=== PATIENT | female | born 1945 ===

== ENCOUNTER 2017-06-07 16:50 | Inpatient (IN) | payer MEDICARE, OTHER ==
--- NOTE | 2017-06-07 17:33 | ED PDOC ---
Arrival/HPI - General Chief Complaint: Trauma Time Seen by Provider: 06/07/17 16:54 Historian: Patient, Spouse - History of Present Illness Narrative History of Present Illness (Text): 06/07/17 17:27 This 72 yo female who denies pmh, presents to this ED c/o right lower leg weakness, and pain x 2 days. Patient stated after standing from her toillet, her right leg became weak, so she 'stumbled", causing her to sit down again. She stated her right leg continues with weakness. She also noted developing "slurred speech" since yesterday afternoon. Denies other complains. Denies sob , cp, abdominal pain, dizziness, schmidt, diplopia, recent trauma, or leg swelling. Past Medical History - Provider Review Nursing Documentation Reviewed: Yes - Infectious Disease Hx of Infectious Diseases: None - Tetanus Immunization Tetanus Immunization: Up to Date - Reproductive Menopause: Yes - Past Medical History Past Medical History: No Previous - Musculoskeletal/Rheumatological Other/Comment: Sciatica - Psychiatric Hx Depression: No Hx Emotional Abuse: No Hx Physical Abuse: No Hx Substance Use: No - Past Surgical History Past Surgical History: No Previous - Suicidal Assessment Feels Threatened In Home Enviroment: No Family/Social History - Physician Review Nursing Documentation Reviewed: Yes Family/Social History: Other (non-contributory) Smoking Status: Never Smoked Hx Alcohol Use: No Hx Substance Use: No Hx Substance Use Treatment: No Allergies/Home Meds Allergies/Adverse Reactions: Allergies No Known Allergies Allergy (Verified 03/01/14 17:06) Home Medications: Home Meds Medication Instructions Recorded Confirmed No Known Home Med [No Known Home 03/09/14 06/07/17 Med] Review of Systems - Review of Systems Constitutional: Normal. absent: Fatigue, Weight Change, Fevers Eyes: Normal ENT: Normal Respiratory: Normal. absent: SOB, Cough Cardiovascular: Normal. absent: Chest Pain, Palpitations Gastrointestinal: Normal Genitourinary Female: Normal Musculoskeletal: Normal Skin: Normal. absent: Rash Neurological: Focal Weakness, Gait Changes, Speech Changes, Facial Droop. absent: Headache, Dizziness, Disequilibrium, Seizure Endocrine: Normal Hemo/Lymphatic: Normal Psychiatric: Normal Physical Exam Vital Signs Temp Pulse Resp BP Pulse Ox 06/07/17 17:45 146 H 146/88 06/07/17 16:50 98.9 F 132 H 16 146/88 98 Temperature: Afebrile Blood Pressure: Normal Pulse: Regular Respiratory Rate: Normal Appearance: Positive for: Well-Appearing, Non-Toxic, Comfortable Pain Distress: None Mental Status: Positive for: Alert and Oriented X 3 Finger Stick Blood Glucose: 251 - Systems Exam Head: Present: Atraumatic, Normocephalic Pupils: Present: PERRL Extroacular Muscles: Present: EOMI Conjunctiva: Present: Normal Mouth: Present: Moist Mucous Membranes Neck: Present: Normal Range of Motion Respiratory/Chest: Present: Clear to Auscultation, Good Air Exchange. No: Respiratory Distress, Accessory Muscle Use Cardiovascular: Present: Regular Rate and Rhythm, Normal S1, S2. No: Murmurs Abdomen: Present: Normal Bowel Sounds. No: Tenderness, Distention, Peritoneal Signs Back: Present: Normal Inspection Upper Extremity: Present: Normal Inspection. No: Cyanosis, Edema Lower Extremity: Present: Normal Inspection. No: Edema Neurological: Present: Motor Func Grossly Intact, Normal Sensory Function, Normal Cerebellar Funct, Memory Normal, Other ((+) mild slurred speech. Mild right facial paralysis) Skin: Present: Warm, Dry, Normal Color. No: Rashes Psychiatric: Present: Alert, Oriented x 3, Normal Insight, Normal Concentration Medical Decision Making ED Course and Treatment: 06/07/17 19:[address] Hooks Neurologist regrading patient complains of slurred speech x 1 day, and right lower leg weakness x 2 days, EKG finding of A-Fib. He recommended Statin and ASA [address] Hooks stated he will make a decision if Heparin is needed after MRI of Brain, and his examination to patient by tomorrow. To hold Heparin tonight. 06/07/17 20:[address] Ngo regarding new onset of A Fib, and cva x 2 days ago. She agreed with symptoms. 06/07/17 20:38 Dr. Taylor Candy Department Manager was called. 06/07/17 20:[address] Tillman Candy Department Manager regarding A-Fib, and if Heparin will be needed tonight. He stated if Neurologist wants to start Heparin tomorrow after MRI of brain, to do so. To hold Heparin tonight Re-evaluation Time: 20:58 Reassessment Condition: Re-examined, Improving,but remains with symptoms - Lab Interpretations Lab Results: 06/07/17 17:35 06/07/17 17:35 Lab Results 06/07/17 19:20: Blood Type Pending, Antibody Screen Pending, BBK History Checked No verified bt 06/07/17 18:50: Urine Color Yellow, Urine Appearance Sl cloudy, Urine pH 6.0, Ur Specific Bob White 1.020, Urine Protein 100 H, Urine Glucose (UA) 250 H, Urine Ketones Negative, Urine Blood Negative, Urine Nitrate Negative, Urine Bilirubin Negative, Urine Urobilinogen 0.2, Ur Leukocyte Esterase Negative, Urine RBC Pending, Urine WBC Pending 06/07/17 17:35: Sodium 142, Potassium 4.5, Chloride 106, Carbon Dioxide 23, Anion Gap 18, BUN 21, Creatinine 0.8, Est GFR ( Amer) > 60, Est GFR (Non- Af Amer) > 60, Random Glucose 251 H, Calcium 9.8, Total Bilirubin 0.5, AST 23, ALT 20, Alkaline Phosphatase 93, Troponin I < 0.01, NT-Pro-B Natriuret Pep 120, Total Protein 8.8 H, Albumin 4.4, Globulin 4.4, Albumin/Globulin Ratio 1.0 L, Triglycerides 125, Cholesterol 188, LDL Cholesterol Direct 119, HDL Cholesterol 49 06/07/17 17:35: PT 10.3, INR 0.95, APTT 25.6 06/07/17 17:35: WBC 14.1 H, RBC 4.42, Hgb 13.4, Hct 39.8, MCV 90.0, MCH 30.3, MCHC 33.7, RDW 13.0, Plt Count 292, MPV 9.0, Gran % 75.6 H, Lymph % (Auto) 17.7 L, Harmon % (Auto) 5.5, Eos % (Auto) 0.6 L, Baso % (Auto) 0.6, Gran # 10.62 H, Lymph # 2.5, Harmon # 0.8 H, Eos # 0.1, Baso # 0.08 06/07/17 17:05: POC Glucose (mg/dL) 251 H I have reviewed the lab results: Yes Interpretation: Abnormal lab values - RAD Interpretation Narrative RAD Interpretations (Text): 06/07/17 17:58 Accession No. 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 TECHNIQUE: Chest, one view. FINDINGS: LUNGS: Subtle patchy opacity within the medial right upper lobe. Right hilar prominence. PLEURA: No significant pleural effusion identified. No definite pneumothorax . CARDIOVASCULAR: Heart size appears within normal limits. Atherosclerotic calcifications of the aortic knob. OSSEOUS STRUCTURES: Degenerative changes of the spine and shoulders. VISUALIZED UPPER ABDOMEN: Unremarkable. OTHER FINDINGS: None. IMPRESSION: Subtle patchy opacity within the medial right upper lobe. Right hilar prominence. 06/07/17 19:03 [facility] Division of Radiology [address] [address] Tel. no. Patient Name: RANDEE PATRICK Pt. Address: [address] [place] [address] Rec #: [id number] [place] [address]: Jason Avitia PA-C Pt Order Location: ED : 1945 Female Age: 72 Order #: [id number] Reason for exam: slurred speech CT Scan HEAD W/O CONTRAST Exam Date: 06/07/17 This imaging exam was performed at [facility] EXAM: CT Head Without Intravenous Contrast EXAM DATE/TIME: 06/07/2017 5:25 PM CLINICAL HISTORY: 72 years old, female; Pain; Headache; Additional info: Slurred speech TECHNIQUE: Axial computed tomography images of the head/brain without intravenous contrast. All CT scans at this facility use one or more dose reduction techniques, viz.: automated exposure control; ma/kV adjustment per patient size (including targeted exams where dose is matched to indication; i.e. head); or iterative reconstruction technique. COMPARISON: There are no prior studies for comparison. FINDINGS: Brain: There is prominence of sulci gyri and ventricles. There is no midline shift. There is decreased attenuation in periventricular white matter. There is age-indeterminate ischemic change anterior limb of the right internal capsule. There is age-indeterminate ischemic change in the anterior limb of the left external capsule. There is age-indeterminate ischemic change in the insular cortex bilaterally. There are no focal masses. There are no focal hemorrhages. Good-white differentiation is visualized. Ventricles: See above. Bones: Cranial vault is intact. Soft tissues: unremarkable Sinuses: There is no acute sinusitis. Ears and mastoids: Middle ears are unremarkable. Left mastoid is unremarkable. Right mastoid is incompletely pneumatized. Orbits: Orbital contents are unremarkable. IMPRESSION: Atrophy and small vessel disease, no bleed; age indeterminate ischemic changes bilaterally If there is clinical suspicion for acute stroke, MRI may be helpful Dictated By: Jeni Fletcher MD, MD Dictated Date/Time: 06/07/171831 Signed By: Jeni Fletcher MD Date Signed: 1831 Transcribed By: BRENTON Transcribe Date/Time : 06/07/171831 MAHIN/ABIMAEL Radiology Orders: 06/07/17 17:23 CHEST PORTABLE [RAD] Stat 06/07/17 17:25 HEAD W/O CONTRAST [CT] Stat 06/07/17 18:29 DUPLEX LOWER EXTRM VEIN RIGHT [US] Stat - EKG Interpretation Interpreted by ED Physician: Yes (A-Fib with rapid ventricular response @ 127 bpm) Type: 12 lead EKG Comparison: No previous EKG avail. - Medication Orders Current Medication Orders: Discontinued Medications Aspirin (Aspirin) 325 mg PO STAT STA Stop: 06/07/17 19:54 Last Admin: 06/07/17 20:25 Dose: 325 mg Atorvastatin Calcium (Lipitor) 20 mg PO STAT STA Stop: 06/07/17 19:54 Last Admin: 06/07/17 20:25 Dose: 20 mg Diltiazem HCl (Cardizem) 20 mg IVP STAT STA Stop: 06/07/17 17:35 Last Admin: 06/07/17 17:45 Dose: 20 mg Ceftriaxone Sodium (Rocephin 1 Gram Ivpb) 1 gm in 100 mls @ 200 mls/hr IVPB STAT STA PRN Reason: Protocol Stop: 06/07/17 19:33 Last Admin: 06/07/17 20:25 Dose: 200 mls/hr Azithromycin (Zithromax 500mg In Ns) 500 mg in 250 mls @ 167 mls/hr IVPB STAT STA PRN Reason: Protocol Stop: 06/07/17 20:33 NIHSS Scale ([place]) Time Performed: 19:00 - How Severe is the Stoke 24 hours post onset S/S Level of Consciousness: 0=Alert LOC to Questions: 0=Both comments correct LOC to commands: 0=Obeys both correctly Best Gaze: 0=Normal Visual: 0=No visual loss Facial: 1=Minor asymmetry Motor Arm - Left: 0=No drift Motor Arm - Right: 0=No drift Motor Leg - Left: 0=No drift Motor Leg - Right: 0=No drift Limb Ataxia: 0=Absent Sensory: 0=Normal Best Language: 0=No aphasia Dysarthia: 1=Mild to moderate slurring Extinction & Inattention (Neglect): 0=Normal, no object Score: 2 Risk Level: Minor Stroke Risk rTPA Inclusion/Exclusion - Refusal of Treatment Patient Refused Treatment: No - Inclusion Criteria for Altepase Patient is 18 years or Older: Yes The Clinical Diagnosis of Ischemic Stroke That is Causing a Potentially Disabling Neurological Deficit: Yes Time of Onset is Well Established to be Less Than 270 Minute Before Treatment Would Begin: No Risk/Benefit Discussed With Patient/Family Member Present: No - Exclusion Criteria for Altepase Uncontrolled Hypertension at Time of Treatment (Systolic BP above 185 or Diastolic BP above 110 mmHg): No Active Internal Bleeding: No Known Bleeding Diathesis Including but Not Limited to: Platelets Below 100,000/ mm,PTT Above 40 sec After Heparin Use, Current Use of Oral Anitcoagulant With INR Greater Than 1.7 or PT Greater Than 15 secs: No Evidence of an Intracranial Hemorrhage: No Evidence of Major Acute Infarct With Signs Greater Than 1/3 MCA Territory: No Suspicion of Subarachnoid Hemorrhage on Pretreatment Evaluation Even if CT Head Negative For Hemorrhage: No - Warning to TPA With Conditions Following Conditions Weighed Against Anticipated Benefit: No Disposition/Present on Arrival - Present on Arrival Any Indicators Present on Arrival: No History of DVT/PE: No History of Uncontrolled Diabetes: No Urinary Catheter: No History of Decub. Ulcer: No History Surgical Site Infection Following: None - Disposition Have Diagnosis and Disposition been Completed?: Yes Diagnosis: New onset atrial fibrillation, CVA (cerebral vascular accident) Disposition: HOSPITALIZED Disposition Time: 21:04 Patient Plan: Admission Patient Problems: Current Active Problems Problem Status Onset CVA (cerebral vascular accident) Acute New onset atrial fibrillation Acute Condition: STABLE Referrals: Jesus Alberto Enriquez MD [Primary Care Provider] - Follow up with primary Forms: [employer] (Irish)
[2017-06-07 17:51] LABS: BASO # 0.08 K/mm3 (0.0-2.0); BASO % 0.6 % (0.0-3.0); EOS # 0.1 (0.0-0.7); EOS % 0.6 % (1.5-5.0); GRAN # 10.62 (1.4-6.5); GRAN % 75.6 % (50.0-68.0); HEMATOCRIT 39.8 % (36.0-48.0); LYMPH # 2.5 (1.2-3.4); LYMPH % 17.7 % (22.0-35.0); MEAN CORPUSCULAR HEMOGLOBIN 30.3 pg (25.0-35.0); MEAN CORPUSCULAR HGB CONC 33.7 g/dl (31.0-37.0); MONO # 0.8 (0.1-0.6); MONO % 5.5 % (1.0-6.0); WHITE BLOOD COUNT 14.1 10^3/ul (4.5-11.0)
[2017-06-07 17:59] LABS: ALKALINE PHOSPHATASE 93 U/L (38-126); ALT/SGPT 20 U/L (7-56); AST/SGOT 23 U/L (14-36); BILIRUBIN,TOTAL 0.5 mg/dL (0.2-1.3); BLOOD UREA NITROGEN 21 mg/dL (7-21); CALCIUM 9.8 mg/dL (8.4-10.5); CARBON DIOXIDE 23 mmol/L (21-33); CHLORIDE 106 mmol/L (98-107); CHOLESTEROL 188 mg/dL (130-200); GFR AFRICAN-AMERICAN > 60; GLUCOSE,RANDOM 251 mg/dL (70-110); POTASSIUM 4.5 mmol/L (3.6-5.0); SODIUM 142 mmol/L (132-148); TOTAL PROTEIN 8.8 g/dL (5.8-8.3)
--- NOTE | 2017-06-07 17:59 | RAD ---
HISTORY: admission COMPARISON: None available. TECHNIQUE: Chest, one view. FINDINGS: LUNGS: Subtle patchy opacity within the medial right upper lobe. Right hilar prominence. PLEURA: No significant pleural effusion identified. No definite pneumothorax . CARDIOVASCULAR: Heart size appears within normal limits. Atherosclerotic calcifications of the aortic knob. OSSEOUS STRUCTURES: Degenerative changes of the spine and shoulders. VISUALIZED UPPER ABDOMEN: Unremarkable. OTHER FINDINGS: None. IMPRESSION: Subtle patchy opacity within the medial right upper lobe. Right hilar prominence.
[2017-06-07 18:06] LABS: INR 0.95 (0.93-1.08); PARTIAL THROMBOPLASTIN TIME 25.6 Seconds (23.7-30.8)
[2017-06-07 18:24] LABS: TROPONIN I < 0.01 ng/mL
--- NOTE | 2017-06-07 18:33 | CT ---
EXAM: CT Head Without Intravenous Contrast EXAM DATE/TIME: 06/07/2017 5:25 PM CLINICAL HISTORY: 72 years old, female; Pain; Headache; Additional info: Slurred speech TECHNIQUE: Axial computed tomography images of the head/brain without intravenous contrast. All CT scans at this facility use one or more dose reduction techniques, viz.: automated exposure control; ma/kV adjustment per patient size (including targeted exams where dose is matched to indication; i.e. head); or iterative reconstruction technique. COMPARISON: There are no prior studies for comparison. FINDINGS: Brain: There is prominence of sulci gyri and ventricles. There is no midline shift. There is decreased attenuation in periventricular white matter. There is age-indeterminate ischemic change anterior limb of the right internal capsule. There is age-indeterminate ischemic change in the anterior limb of the left external capsule. There is age-indeterminate ischemic change in the insular cortex bilaterally. There are no focal masses. There are no focal hemorrhages. Good-white differentiation is visualized. Ventricles: See above. Bones: Cranial vault is intact. Soft tissues: unremarkable Sinuses: There is no acute sinusitis. Ears and mastoids: Middle ears are unremarkable. Left mastoid is unremarkable. Right mastoid is incompletely pneumatized. Orbits: Orbital contents are unremarkable. IMPRESSION: Atrophy and small vessel disease, no bleed; age indeterminate ischemic changes bilaterally If there is clinical suspicion for acute stroke, MRI may be helpful
[2017-06-07 18:58] LABS: URINE BILIRUBIN NEGATIVE (NEGATIVE); URINE BLOOD NEGATIVE (NEGATIVE); URINE GLUCOSE (UA) 250 mg/dL (NEGATIVE); URINE KETONE NEGATIVE (NEGATIVE); URINE LEUKOCYTE ESTERASE NEGATIVE Leu/uL (NEGATIVE); URINE PROTEIN 100 mg/dL (<30 mg/dL); URINE UROBILINOGEN 0.2 E.U./dL (<1 E.U./dL)
[2017-06-07 18:59] LABS: URINE APPEARANCE SL CLOUDY (CLEAR); URINE COLOR YELLOW (YELLOW)
[2017-06-07] MEDS ORDERED: Azithromycin 500MG/NS 250ml 500 MG/250 ML BAG IVPB STA (19:04)
[2017-06-07] MEDS ORDERED: cefTRIAXone 1 gm 1 GM/100 ML BAG IVPB STA (19:04)
[2017-06-07 22:56] LABS: URINE BACTERIA MANY (NEG); URINE RBC NEGATIVE /hpf (0-2)
--- NOTE | 2017-06-07 23:46 | CP.PCM.HP ---
<PAULINE BIRD - Last Filed: 06/08/17 01:45> History of Present Illness - History of Present Illness History of Present Illness: Mrs. Kohler is a 72 yo F with no PMH presents to the ED after having some RLE numbness (posterior shins) on Wednesday after sitting on the toilet which caused her to stumble and remain in pain for the rest of the day. Pt then states that she discovered that she was slurring her speech on Wednesday at 4pm, but denied any changes in vision, new/unilateral weakness, focal deficits, facial droop or changes in hearing. She states that she contacted her daughter who is a nurse, who told her to go in to ED for workup as it could be a stroke, but pt did not come in until Wednesday. Per , the slurring of speech has improved from onset. Pt did state that she had palpitations on Wednesday and that she had a productive cough (white phlegm last week). Upon further questioning, pt states that her "sciatica" pain, which she diagnosed by looking up symptoms online, has been going for at least 3 months. Pt doesn't like seeing doctors and so has never been worked up before. Pt denies cp, sob, fevers , chills, n/v/d, dysuria or urinary frequency, weakness, changes in hearing/ vision, leg swelling. 10-point ROS reviewed and significant only as stated above. 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, lives at home with FHx: Dad (cerebral aneurysm), Mom (SC), 2 brothers (CVA), 2 sisters (SC) PMD: none Present on Admission - Present on Admission Any Indicators Present on Admission: No History of DVT/PE: No History of Uncontrolled Diabetes: No Review of Systems - Review of Systems All systems: reviewed and no additional remarkable complaints except (as per HPI ) Past Patient History - Infectious Disease Hx of Infectious Diseases: None - Tetanus Immunizations Tetanus Immunization: Up to Date - Past Social History Smoking Status: Never Smoked Alcohol: None Drugs: Denies Home Situation {Lives}: With Family - CARDIAC Hx Cardiac Disorders: No - PULMONARY Hx Respiratory Disorders: No - NEUROLOGICAL Hx Neurological Disorder: No - HEENT Hx HEENT Problems: No - RENAL Hx Chronic Kidney Disease: No - ENDOCRINE/METABOLIC Hx Endocrine Disorders: No - HEMATOLOGICAL/ONCOLOGICAL Hx Blood Disorders: No - INTEGUMENTARY Hx Dermatological Problems: No - MUSCULOSKELETAL/RHEUMATOLOGICAL Hx Musculoskeletal Disorders: Yes (sciatica ) Other/Comment: Sciatica - GASTROINTESTINAL Hx Gastrointestinal Disorders: No - GENITOURINARY/GYNECOLOGICAL Hx Genitourinary Disorders: No - PSYCHIATRIC Hx Psychophysiologic Disorder: No Hx Depression: No Hx Emotional Abuse: No Hx Physical Abuse: No Hx Substance Use: No - SURGICAL HISTORY Hx Surgeries: No Meds Allergies/Adverse Reactions: Allergies Allergy/AdvReac Type Severity Reaction Status Date / Time No Known Allergies Allergy Verified 03/01/14 17:06 Physical Exam - Constitutional Appears: Well, Non-toxic, No Acute Distress - Head Exam Head Exam: ATRAUMATIC, NORMAL INSPECTION, NORMOCEPHALIC - Eye Exam Eye Exam: EOMI, Normal appearance, PERRL Pupil Exam: NORMAL ACCOMODATION - ENT Exam ENT Exam: Mucous Membranes Moist, Normal Exam - Neck Exam Neck exam: Positive for: Normal Inspection - Respiratory Exam Respiratory Exam: Clear to Auscultation Bilateral, NORMAL BREATHING PATTERN. absent: Accessory Muscle Use, Rales, Rhonchi, Wheezes, Respiratory Distress - Cardiovascular Exam Cardiovascular Exam: Tachycardia, Irregular Rhythm. absent: Gallop, JVD - GI/Abdominal Exam GI & Abdominal Exam: Normal Bowel Sounds, Soft. absent: Distended, Tenderness - Extremities Exam Extremities exam: Positive for: full ROM, pedal pulses present. Negative for: calf tenderness, pedal edema, tenderness - Back Exam Back exam: NORMAL INSPECTION. absent: CVA tenderness (L), CVA tenderness (R), rash noted, tenderness - Neurological Exam Neurological exam: Alert, CN II-XII Intact, Oriented x3 Additional comments: NIHSS 2: +1: minor facial paralysis +1: mild dysarthria - Expanded Neurological Exam Expanded Patient oriented to: person, place, time Speech: Slurred Speech (mild) Cranial nerves: EOM's Intact: Normal, Facial Palsey w/Forehead Movement: Normal , Facial Palsey w/o Forehead Movement: Normal, Facial Sensation: Normal, Gag Reflex: Normal, Nystagmus: Normal Cerebellar Function: Finger to Nose: Normal, Heel to Mario: Normal Upper motor neuron: Babinski Sign: Normal, Pronator Drift: Normal, Sensory Extinction: Normal Sensory exam: Lower Extremity Light Touch: Normal, Upper Extremity Light Touch: Normal Neuro motor strength exam: Left Upper Extremity: 4, Right Upper Extremity: 4, Left Lower Extremity: 4, Right Lower Extremity: 4 DTR: Patellar Left: 2+, Patellar Right: 2+ Coma Scale Eye Opening: SPONTANEOUS Coma Scale Motor Response: OBEYS COMMANDS Coma Scale Verbal: Oriented Coma Scale Total: 15 - Psychiatric Exam Psychiatric exam: Normal Affect, Normal Mood - Skin Skin Exam: Normal Color Results - Vital Signs Recent Vital Signs: Last Vital Signs Temp 98.9 F 06/07/17 16:50 Pulse 83 06/07/17 21:00 Resp 16 06/07/17 21:00 BP 152/103 H 06/07/17 21:00 Pulse Ox 95 06/07/17 21:00 - Labs Result Diagrams: 06/07/17 17:35 06/07/17 17:35 Assessment & Plan - Assessment and Plan (Free Text) Assessment: 72yo F PMH sciatica presents to ED s/p slurring of speech that has since resolved and acute exacerbation of chronic sciatic pain. EKG in ED showed A- Fib. Plan: 1. slurring of speech likely 2/2 TIA vs CVA - strong family hx raises suspicion for CVA - NIHSS 2 - CT Head w/o contrast showed no hemorrhage or midline shifts. +age- indeterminate ischemic changes - ASA 325 given, cont 81mg - Lipitor 40mg given in ED - Neurology consulted, rec MRI AM and hold heparin till then - Neuro checks q2 - PT Eval 2. A-Fib/ unknown hx - Cardizem 20mg given in ED - HR currently 80's - Cargiology consulted, recs appreciated - Lopressor 50mg BID - EKG and Echo AM 3. HTN/ unknown hx - started on Lopressor - monitor VS 4. Hyperglycemia/ unknown hx - Humalog low ISS - FS qACHS - A1C ordered 5. Leukocytosis - WBC 14.1 - UA clean - blood cx sent - Azithromycin and Rocephin given in ED - CXR showed subtle patchy opacity within the medial right upper lobe. Right hilar prominence. - Rocephin 1gm daily - Procal ordered HHD NS 100 PTX/SCDs Patient was seen, evaluated and d/w attending, Dr. Jeni Bird PGY1 - Date & Time Date: 06/08/17 Time: 00:00 <Kiley Ngo - Last Filed: 06/08/17 02:16> Results - Vital Signs Recent Vital Signs: Last Vital Signs Temp 98.9 F 06/07/17 16:50 Pulse 78 06/08/17 01:19 Resp 16 06/07/17 21:00 BP 145/89 06/08/17 01:19 Pulse Ox 95 06/07/17 21:00 - Labs Result Diagrams: 06/07/17 17:35 06/07/17 17:35 NIHSS Scale ([place]) Time Performed: 21:30 - How Severe is the Stoke 7-10 days Level of Consciousness: 0=Alert LOC to Questions: 0=Both comments correct LOC to commands: 0=Obeys both correctly Best Gaze: 0=Normal Visual: 0=No visual loss Facial: 1=Minor asymmetry Motor Arm - Left: 0=No drift Motor Arm - Right: 0=No drift Motor Leg - Left: 0=No drift Motor Leg - Right: 1=Drift before 5 sec Limb Ataxia: 0=Absent Sensory: 0=Normal Best Language: 0=No aphasia Dysarthia: 1=Mild to moderate slurring Extinction & Inattention (Neglect): 0=Normal, no object Score: 3 Risk Level: Minor Stroke Risk Attending/Attestation - Attestation I have personally seen and examined this patient.: Yes I have fully participated in the care of the patient.: Yes I have reviewed all pertinent clinical information: Yes Notes (Text): 06/08/17 02:15 documentation as noted above
[2017-06-08] MEDS: Sodium Chloride 0.9% 1,000 ML IV SCH ×2 (01:20→15:09)
[2017-06-08 02:24] VITALS: BMI 20.5
[2017-06-08] MEDS: Pantoprazole 40 mg EC Tab PO SCH ×2 (05:37→17:40)
[2017-06-08 07:04] LABS: HEMATOCRIT 37.2 % (36.0-48.0); MEAN CELL VOLUME 91.6 fl (80.0-105.0); MEAN CORPUSCULAR HEMOGLOBIN 29.8 pg (25.0-35.0); MEAN CORPUSCULAR HGB CONC 32.5 g/dl (31.0-37.0); RED CELL DISTRIBUTION WIDTH 13.4 % (11.5-14.5); WHITE BLOOD COUNT 9.2 10^3/ul (4.5-11.0)
[2017-06-08 07:33] LABS: ALKALINE PHOSPHATASE 67 U/L (38-126); ALT/SGPT 16 U/L (7-56); AST/SGOT 22 U/L (14-36); BILIRUBIN,TOTAL 0.6 mg/dL (0.2-1.3); BLOOD UREA NITROGEN 23 mg/dL (7-21); CALCIUM 9.2 mg/dL (8.4-10.5); CARBON DIOXIDE 23 mmol/L (21-33); CHLORIDE 108 mmol/L (98-107); GFR AFRICAN-AMERICAN > 60; GLUCOSE,RANDOM 201 mg/dL (70-110); POTASSIUM 4.8 mmol/L (3.6-5.0); SODIUM 143 mmol/L (132-148); TOTAL PROTEIN 7.8 g/dL (5.8-8.3)
[2017-06-08] MEDS ORDERED: Enoxaparin 60 mg Syringe SC SCH (07:45)
[2017-06-08] MEDS: Insulin Lispro (humaLOG) LOW Coverage SC SCH ×4 (08:44→22:04)
--- NOTE | 2017-06-08 10:47 | CON ---
NEUROLOGY CONSULTATION REASON FOR CONSULTATION: Slurring of speech. HISTORY OF PRESENTING ILLNESS: The patient is a 72-year-old female who came to the emergency room with 2-day history of slurring of speech and weakness in the right lower extremity. The patient apparently was having slurring of speech over the last 2 days; however, she did not want to come to the emergency room. The ER physician also noted that her leg is weak. She has a history of right leg pain in the past. Yesterday, she was having difficulty standing on the right leg. Denies any weakness in the arms. REVIEW OF SYSTEMS: Denies any headache, dizziness, chest pain, shortness of breath, abdominal pain, constipation, diarrhea, dysuria, cough or sputum production. PAST MEDICAL HISTORY: None. MEDICATIONS AT HOME: None. ALLERGIES: NO KNOWN DRUG ALLERGIES. SOCIAL HISTORY: Denies smoking, use of alcohol or illicit drugs. FAMILY HISTORY: Reviewed and noncontributory to the case. PHYSICAL EXAMINATION: GENERAL: The patient is an elderly pleasant female, lying on the bed, in no acute distress. VITAL SIGNS: Her blood pressure is 117/74, heart rate is 56 per minute, breathing at the rate of 16 per minute and temperature is 98.6 degree Fahrenheit. HEENT EXAM: Head is normocephalic and atraumatic. NECK: Supple. There are no carotid bruits. LUNGS: Clear. CARDIOVASCULAR EXAM: S1 and S2 audible. No murmurs. ABDOMEN: Soft and nontender. Bowel sounds are present. NEUROLOGY EXAMINATION: Mental status. The patient is awake, alert and oriented to time, place, and person. Speech is fluent. Naming and repetition is normal. The memory and cognition are intact. Cranial Nerve Examination: Pupils are 3 mm bilaterally, reactive to light. Visual mathews are full. Extraocular movements are intact. There is decreased nasolabial fold on the left side. Palate is upgoing bilaterally and tongue is midline. Motor Examination: Tone is normal. Power is 5/5 bilaterally in all extremities. Reflexes +1 and symmetrical. Plantars are downgoing bilaterally. Cerebellar Examination: [id number] shows no dysmetria. Gait is deferred at the moment. LABORATORY DATA: Reviewed, show WBC 9.2, hemoglobin 12.1, hematocrit 37.2 and platelets of 279. Sodium is 143, potassium 4.8, chloride 108, carbon dioxide content 23, BUN of 23, creatinine 0.8 and glucose of 201. Her LDL is 119. She had a CT scan of the head done which shows small-vessel ischemic changes. IMPRESSION: 1. New onset of dysarthria associated with left facial weakness. This is likely secondary to a new cerebrovascular accident. 2. New onset of atrial fibrillation. RECOMMENDATIONS: 1. The patient will have MRI of the brain without contrast. 2. The patient will also have carotid Doppler and echocardiogram. 3. The patient will require chronic anticoagulation with her underlying atrial fibrillation. Once anticoagulation is started consider discontinuing aspirin. 4. The patient also to be started on statin. 5. The patient to have physical therapy for gait and balance. 6. The patient also to have speech therapy evaluation. 7. The patient was not a candidate for t-PA administration because she was out of time window. Thank you for the opportunity to participate in the care of this patient. Elysia Hooks MD
--- NOTE | 2017-06-08 10:49 | MRI ---
PROCEDURE: MRI BRAIN WITHOUT CONTRAST HISTORY: s/p TIA vs CVA COMPARISON: None. TECHNIQUE: Multiplanar, multisequence MR images of the brain were obtained without intravenous contrast enhancement. FINDINGS: HEMORRHAGE: None DWI: There is a 10 mm diameter irregular area of restricted diffusion in the left side of the mary consistent with an acute infarct. This is best seen on image 9 series 3. This is also seen on the T2 and FLAIR images. BRAIN PARENCHYMA: No mass effect or edema. Chronic microvascular changes are seen in the periventricular white matter. VENTRICLES: Unremarkable. No hydrocephalus. CRANIUM: Unremarkable. ORBITS: Grossly unremarkable. PARANASAL SINUSES/MASTOIDS: Clear VASCULAR SYSTEM: Skull base flow voids intact. OTHER FINDINGS: None. IMPRESSION: Acute left-sided pontine infarct.
--- NOTE | 2017-06-08 11:24 | US ---
PROCEDURE: Right lower extremity venous US HISTORY: Leg pain and swelling. Evaluate for DVT. PHYSICIAN(S): Wero Radford M.D. TECHNIQUE: Duplex sonography and color-flow Doppler with graded compression were used to evaluate the deep venous system of the right lower extremity. FINDINGS: The visualized deep venous system of the right lower extremity is sonographically normal and compressible. Normal waveforms and augmentation are seen. There is no sonographic evidence for deep venous thrombosis in the visualized segments of the right lower extremity. IMPRESSION: 1. No sonographic evidence for deep venous thrombosis in the visualized segments of the right lower extremity.
[2017-06-08] MEDS: cefTRIAXone 1 gm 1 GM/100 ML BAG IVPB SCH (11:56)
--- NOTE | 2017-06-08 13:54 | CP.PCM.PN ---
<ShardaManueln - Last Filed: 06/08/17 14:05> Subjective - Date & Time of Evaluation Date of Evaluation: 06/08/17 Time of Evaluation: 10:49 - Subjective Subjective: This patient was seen and examined at bedside. The patient reports difficulty in speaking and some right lower extremity weakness today. She denies any chest pain, shortness of breath, nausea, vomiting, lightheadedness, dizziness, changes in vision, cough, or any other complaints. PMHx:sciatica? 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 Denies tobacco or alcohol use. Denies illicit drug use. Lives at home with Family Hx:Dad (cerebral anuerysm), Mom (CT), 2 brothers (CVA), 2 Sisters (CT) PMD: None Objective - Vital Signs/Intake and Output Vital Signs (last 24 hours): Temp Pulse Resp BP Pulse Ox 98.7 F 58 L 20 122/78 98 06/08/17 12:00 06/08/17 12:00 06/08/17 12:00 06/08/17 12:00 06/08/17 06:00 Intake and Output: 06/08/17 06/08/17 06:59 18:59 Intake Total 240 Output Total 2 Balance 238 - Medications Medications: Current Medications Aspirin (Aspirin Chewable) 81 mg PO DAILY [facility] Last Admin: 06/08/17 11:57 Dose: 81 mg Atorvastatin Calcium (Lipitor) 40 mg PO DIN BOO Sodium Chloride (Sodium Chloride 0.9%) 1,000 mls @ 100 mls/hr IV .Q10H [facility] Last Admin: 06/08/17 01:20 Dose: 100 mls/hr Ceftriaxone Sodium (Rocephin 1 Gram Ivpb) 1 gm in 100 mls @ 100 mls/hr IVPB DAILY [facility] PRN Reason: Protocol Last Admin: 06/08/17 11:56 Dose: 100 mls/hr Insulin Human Lispro (Humalog Low) 0 units SC ACHS [facility] PRN Reason: Protocol Last Admin: 06/08/17 11:57 Dose: Not Given Metoprolol Tartrate (Lopressor) 50 mg PO BID [facility] Last Admin: 06/08/17 11:53 Dose: Not Given Pantoprazole Sodium (Protonix Ec Tab) 40 mg PO 0600,1600 BOO Last Admin: 06/08/17 05:37 Dose: 40 mg - Labs Labs: 06/08/17 05:15 06/08/17 05:15 PT 10.3 Seconds (9.9-11.8) 06/07/17 17:35 INR 0.95 (0.93-1.08) 06/07/17 17:35 APTT 25.6 Seconds (23.7-30.8) 06/07/17 17:35 - Head Exam Head Exam: ATRAUMATIC, NORMAL INSPECTION, NORMOCEPHALIC Additional comments: Asymmetry noted in the face on the right side. Asymmetric smile. - Eye Exam Eye Exam: EOMI, Normal appearance, PERRL - Neck Exam Neck Exam: Normal Inspection - Respiratory Exam Respiratory Exam: Clear to Ausculation Bilateral, NORMAL BREATHING PATTERN. absent: Rales, Rhonchi - Cardiovascular Exam Cardiovascular Exam: REGULAR RHYTHM, +S1, +S2. absent: Rubs - GI/Abdominal Exam GI & Abdominal Exam: Soft, Normal Bowel Sounds. absent: Rigid, Tenderness, Hyperactive Bowel Sounds - Extremities Exam Additional comments: Decreased strength noticed on the right lower extremity. - Back Exam Back Exam: NORMAL INSPECTION. absent: paraspinal tenderness - Neurological Exam Neurological Exam: Alert, Awake, CN II-XII Intact - Psychiatric Exam Psychiatric exam: Normal Affect, Normal Mood - Skin Skin Exam: Dry, Intact. absent: Urticaria, Vesicles Assessment and Plan - Assessment and Plan (Free Text) Assessment: 1.CVA -MRI showed a acute left pontine infarct -Continue ASA 81 mg. -Continue neuro checks q2. -PT Eval pending 2. Afib -Cardizem 20 given in E.D.Currently HR 56. Monitor heart rate. -Cardiology consulted and appreciated. -Continue lopressor. -Echo pending. 3.HTN -continue Lopressor -Monitor vital signs 4.Diabetes Type 2 -A1C-8.5 % -Continue Humalog. -Follow up with PMD as outpatient for further management. 5.Leukocytosis -Resolved. WBC 9.2 (down from 14.1) -Blood cx pending -Continue Rocephin. <Kym El - Last Filed: 06/09/17 07:57> Objective - Vital Signs/Intake and Output Vital Signs (last 24 hours): Temp Pulse Resp BP Pulse Ox 98.7 F 49 L 20 166/88 H 98 06/08/17 12:00 06/09/17 05:51 06/08/17 12:00 06/08/17 17:40 06/08/17 06:00 Intake and Output: 06/09/17 06/09/17 06:59 18:59 Output Total 400 Balance -400 - Medications Medications: Current Medications Apixaban (Eliquis) 10 mg PO BID [facility] PRN Reason: Protocol Aspirin (Aspirin Chewable) 81 mg PO DAILY [facility] Last Admin: 06/08/17 11:57 Dose: 81 mg Atorvastatin Calcium (Lipitor) 40 mg PO DIN [facility] Last Admin: 06/08/17 17:40 Dose: 40 mg Enoxaparin Sodium (Lovenox) 50 mg SC Q12H [facility] PRN Reason: Protocol Last Admin: 06/08/17 20:49 Dose: 50 mg Glipizide (Glucotrol) 5 mg PO DAILY [facility] Last Admin: 06/08/17 15:09 Dose: 5 mg Sodium Chloride (Sodium Chloride 0.9%) 1,000 mls @ 100 mls/hr IV .Q10H [facility] Last Admin: 06/09/17 01:44 Dose: 100 mls/hr Ceftriaxone Sodium (Rocephin 1 Gram Ivpb) 1 gm in 100 mls @ 100 mls/hr IVPB DAILY [facility] PRN Reason: Protocol Last Admin: 06/08/17 11:56 Dose: 100 mls/hr Insulin Human Lispro (Humalog Low) 0 units SC ACHS [facility] PRN Reason: Protocol Last Admin: 06/08/17 22:04 Dose: Not Given Lisinopril (Zestril) 10 mg PO DAILY [facility] Metoprolol Tartrate (Lopressor) 50 mg PO BID [facility] Last Admin: 06/08/17 17:40 Dose: 50 mg Pantoprazole Sodium (Protonix Ec Tab) 40 mg PO 0600,1600 [facility] Last Admin: 06/09/17 05:41 Dose: 40 mg - Labs Labs: 06/08/17 05:15 06/08/17 05:15 PT 10.3 Seconds (9.9-11.8) 06/07/17 17:35 INR 0.95 (0.93-1.08) 06/07/17 17:35 APTT 25.6 Seconds (23.7-30.8) 06/07/17 17:35 Attending/Attestation - Attestation I have personally seen and examined this patient.: Yes I have fully participated in the care of the patient.: Yes I have reviewed all pertinent clinical information, including history, physical exam and plan: Yes Notes (Text): 06/09/17 07:53 Attending note; Patient seen and examined with resident. Patient's daughter by the bedside. Patient is a 72-year-old female admitted with right lower extremity numbness and slurred speech. CT head showed atrophy of small vessels and ischemic changes. MRI showed acute left pontine infarct. Neurology evaluation appreciated. Continue aspirin, Lipitor. New onset A. fib; started on subcutaneous Lovenox. Case discussed with cardiology in detail. Started eliquis in a.m. Echocardiogram ordered. Diabetes; newly diagnosed. Started on glipizide. PT evaluation requested. Case discussed with supportive employment case manager for discharge planning. Upon discharge the patient can follow up with PMD DR. Enriquez.
--- NOTE | 2017-06-08 17:13 | US ---
PROCEDURE: Bilateral carotid artery duplex ultrasound HISTORY: Carotid stenosis CVA PHYSICIAN(S): Wero Radford MD. TECHNIQUE: Duplex sonography and color-flow Doppler were used to evaluate the carotid bifurcations and limited segments of the vertebral arteries bilaterally. FINDINGS: There is moderate focal heterogeneous plaque noted at the carotid bifurcations bilaterally. Interrogation of the ICA origins is somewhat limited by shadowing plaque. The peak systolic velocity in the proximal right internal carotid artery is 130 cm/sec. This corresponds to a 40-59 percent proximal right ICA stenosis. Mildly elevated systolic velocities are noted in the proximal right external carotid artery. There is antegrade flow in the right vertebral artery. The peak systolic velocity in the proximal left internal carotid artery is 187 cm/sec. This corresponds to a 60-79 percent proximal left ICA stenosis. Normal systolic velocities are noted in the proximal left external carotid artery. There is antegrade flow in the left vertebral artery. IMPRESSION: 1. 60-79 percent proximal left ICA stenosis. 2. 40-59 percent proximal right ICA stenosis. 3. Antegrade flow in both vertebral arteries. 4. Interrogation of the ICA origins is somewhat limited by shadowing plaque.
--- NOTE | 2017-06-08 18:22 | CON ---
REASON FOR CONSULTATION: Atrial fibrillation and acute stroke in the past. The patient's right leg weakness has improved, but still has some degree of slurred speech. The patient denies any syncope. The patient denied any chest pain or shortness of breath and is unaware of any history of heart attack in the past. SOCIAL HISTORY: Nonsmoker. She is , lives with her . MEDICATIONS: Aspirin 81 mg once a day, glipizide 5 mg once a day, Lipitor 40 mg once a day, Lopressor 50 mg once a day, Lovenox 50 mg subcutaneous twice a day, Protonix 40 mg p.o. twice a day, Rocephin 1 g intravenously daily, normal saline at 10 mL an hour. REVIEW OF SYSTEMS: No fever or chills. No vomiting or diarrhea. No reported ventricular arrhythmia. PHYSICAL EXAMINATION GENERAL: The patient is an elderly female, who does not appear to be in acute distress. VITAL SIGNS: Blood pressure 122/78, heart rate 58, temperature 98.7, respirations 20. HEENT: No pallor or icterus. NECK: No JVD. CHEST: Clear. HEART: S1 and S2 regular. ABDOMEN: Soft. EXTREMITIES: No edema or calf tenderness. LABORATORY DATA: CBC: WBC 9.2, hemoglobin and hematocrit 12.1 and 37.2 respectively while platelet count 279,000. SMA-7: Sodium 143, potassium 4.8, chloride 108, CO2 23, glucose 201, BUN 23, creatinine 0.8. One set of troponin is negative. Admitting EKG revealed atrial fibrillation at the rate of [address] segment changes. Today's EKG revealed sinus bradycardia at rate of 56 with lateral ischemic T wave changes. Brain MRI revealed acute left-sided pontine infarct. Lower extremity ultrasound, no sonographic evidence of DVT. ASSESSMENT: 1. Paroxysmal atrial fibrillation. 2. Acute cerebrovascular accident in the form of left pontine infarct. 3. Hypertension. 4. Diabetes mellitus. RECOMMENDATIONS: Continue therapeutic subcutaneous Lovenox 50 mg twice a day, Lipitor at 40 mg once a day, hold Lopressor for heart rate below 60. Continue aspirin 81 mg once a day. Eliquis will be started tomorrow as per the neurologist. I would review echocardiography study performed today. I did request TSH level. Santi Taylor MD [facility] # [id number]
--- NOTE | 2017-06-08 19:40 | CARD ---
APPROVED REPORT EXAM: Two-dimensional and M-mode echocardiogram with Doppler and color Doppler. INDICATION NEW A-FIB 2D DIMENSIONS Left Atrium (2D)4.1 (1.6-4.0cm)IVSd1.2 (0.7-1.1cm) LVDd4.4 (3.9-5.9cm)PWd1.4 (0.7-1.1cm) LVDs3.0 (2.5-4.0cm)FS (%) 32.0 % LVEF (%)60.3 (>50%) M-Mode DIMENSIONS Aortic Root3.30 (2.2-3.7cm)Aortic Cusp Exc.1.30 (1.5-2.0cm) Aortic Valve AoV Peak Xjtyfwbr646.0cm/Rigoberto Peak GR.9mmHg Mitral Valve MV E Jolruypx38.9cm/sMV A Mavuhmxj45.8cm/sE/A ratio0.8 TDI Lateral E' Peak V6.43cm/sMedial E' Peak V5.95cm/sE/Lateral E'11.8 E/Medial E'12.8 Pulmonary Valve PV Peak Uhdgryjx67.5cm/sPV Peak Grad.3mmHg Tricuspid Valve TR Peak Uhtutxce389ot/sRAP [id number] Peak Gr.25mmHg [id number] LEFT VENTRICLE The left ventricle is normal size. There is borderline concentric left ventricular hypertrophy. The left ventricular function is normal. The left ventricular ejection fraction is within the normal range. There is normal LV segmental wall motion. Transmitral Doppler flow pattern is Grade I-abnormal relaxation pattern. RIGHT VENTRICLE The right ventricle is normal size. There is normal right ventricular wall thickness. The right ventricular systolic function is normal. ATRIA The left atrium size is normal. The right atrium size is normal. AORTIC VALVE The aortic valve is not well visualized. No aortic regurgitation is present. There is no aortic valvular stenosis. MITRAL VALVE The mitral valve is mildly thickened. Mitral regurgitation is mild. TRICUSPID VALVE There is mild tricuspid regurgitation. There is mild pulmonary hypertension. GREAT VESSELS The aortic root is normal in size. PERICARDIAL EFFUSION There is a small loculated anterior pericardial effusion. <Conclusion> The left ventricle is normal size. There is borderline concentric left ventricular hypertrophy. The left ventricular function is normal. The left ventricular ejection fraction is within the normal range. There is normal LV segmental wall motion. Transmitral Doppler flow pattern is Grade I-abnormal relaxation pattern. Mitral regurgitation is mild. There is mild tricuspid regurgitation. There is mild pulmonary hypertension.
[2017-06-08] MEDS: Enoxaparin 60 mg Syringe SC SCH (20:49)
--- NOTE | 2017-06-08 23:28 | CARD ---
APPROVED REPORT EKG Measurement Heart [id number] <Conclusion> Sinus bradycardia with 1st degree AV block T wave abnormality, consider anterolateral ischemia Prolonged QT Abnormal ECG
--- NOTE | 2017-06-09 00:27 | CARD ---
APPROVED REPORT EKG Measurement Heart [id number] <Conclusion> Atrial fibrillation with rapid ventricular response Nonspecific ST abnormality, probably digitalis effect Abnormal ECG
[2017-06-09] MEDS: Sodium Chloride 0.9% 1,000 ML IV SCH (01:44)
[2017-06-09] MEDS: Pantoprazole 40 mg EC Tab PO SCH (05:41)
[2017-06-09 07:59] LABS: HEMATOCRIT 37.5 % (36.0-48.0); MEAN CELL VOLUME 91.2 fl (80.0-105.0); MEAN CORPUSCULAR HEMOGLOBIN 30.2 pg (25.0-35.0); MEAN CORPUSCULAR HGB CONC 33.1 g/dl (31.0-37.0); MEAN PLATELET VOLUME 9.1 fl (7.0-11.0); RED CELL DISTRIBUTION WIDTH 13.1 % (11.5-14.5); WHITE BLOOD COUNT 10.6 10^3/ul (4.5-11.0)
[2017-06-09 08:07] VITALS: O2SAT 97
[2017-06-09 08:12] LABS: ALKALINE PHOSPHATASE 66 U/L (38-126); ALT/SGPT 24 U/L (7-56); AST/SGOT 25 U/L (14-36); BILIRUBIN,TOTAL 0.8 mg/dL (0.2-1.3); BLOOD UREA NITROGEN 18 mg/dL (7-21); CALCIUM 9.4 mg/dL (8.4-10.5); CARBON DIOXIDE 25 mmol/L (21-33); CHLORIDE 110 mmol/L (95-110); GFR AFRICAN-AMERICAN > 60; GLUCOSE,RANDOM 143 mg/dL (70-110); POTASSIUM 4.1 mmol/L (3.6-5.0); SODIUM 144 mmol/L (132-148)
--- NOTE | 2017-06-09 08:45 | PQF PNEUMO ---
This form is a permanent part of the medical record Clarification of your documentation is requested to better reflect the severity of illness and intensity of treatment of your patient. Indicators present Admitted w/ leukocytosis, CXR- subtle patchy opacities medial RUL. Treated w/ IV Roceph. Was Pneumonia present & treated on admission [] Documented diagnosis of pneumonia [x] X-ray findings: [] Positive Sputum cultures [] Cough w/ fever [] Abnormal lungs sounds [] Poor gag reflex [] Speech consults/swallow evaluation [] Vent dependence [] Other: [] Location in the medical record that reflects the above clinical findings: [x] Admission CXR Treatment Provided: []IV Rocephin PHYSICIAN'S RESPONSE Based on your medical judgment of the clinical indicators outlined above, are you treating this patient for a known or suspected: [] Aspiration pneumonia [] Community acquired pneumonia [] Ventilator associated pneumonia [] Viral pneumonia [] Bacterial pneumonia Please specify organism: [] [] Other, please indicate [] If Unable to Determine, please check the box, sign and date. Present On Admission (POA) Indicator: [x] Present at the time of admission [] Not present at the time of admission [] Clinically Undetermined In responding to this query, please exercise your independent professional judgment. The fact that a question is asked does not imply that any particular answer is desired or expected. Thank you for your clarification on this documentation. If you have any questions please call:[ ][phone] * Thank you, [ ]Kristen Burch RN CDS pension consultant PASTOR
[2017-06-09] MEDS: Insulin Lispro (humaLOG) LOW Coverage SC SCH ×2 (10:03→11:53)
[2017-06-09] MEDS: Enoxaparin 60 mg Syringe SC SCH (10:04)
[2017-06-09] MEDS: cefTRIAXone 1 gm 1 GM/100 ML BAG IVPB SCH (10:11)
--- NOTE | 2017-06-09 10:35 | CT ---
PROCEDURE: CT Chest without contrast HISTORY: r/o pneumonia COMPARISON: None. TECHNIQUE: Contiguous axial images were obtained through the chest without intravenous contrast enhancement. Sagittal and coronal reconstructions were performed. Radiation dose (DLP): mGy-cm. This CT exam was performed using one or more of the following dose reduction techniques: Automated exposure control, adjustment of the mA and/or kV according to patient size, and/or use of iterative reconstruction technique. FINDINGS: LUNGS: There is no focal consolidation to suggest pneumonia. There is some scarring in the right lower lobe in the region of the azygoesophageal recess. MEDIASTINUM: Unremarkable thoracic aorta. No aneurysm. Extensive calcifications are seen in the coronary arteries. The heart is normal in size Main pulmonary artery unremarkable. No vascular congestion. No lymphadenopathy. PLEURA: No pleural fluid. No pneumothorax. BONES: No fracture. No destructive lesion. UPPER ABDOMEN: Grossly unremarkable. OTHER FINDINGS: None. IMPRESSION: No acute findings. No evidence of pneumonia.
[2017-06-09 13:04] VITALS: BP 149/80; RESP 14; TEMP 98
--- NOTE | 2017-06-09 14:22 | CP.PCM.DIS ---
<ShardaManueln - Last Filed: 06/09/17 14:17> Provider - Provider Date of Admission: 06/07/17 21:09 Attending physician: Kym El MD Primary care physician: Jesus Alberto Enriquez MD Time Spent in preparation of Discharge (in minutes): 50 Hospital Course - Lab Results Lab Results: Most Recent Lab Values WBC 10.6 10^3/ul (4.5-11.0) 06/09/17 07:30 RBC 4.11 10^6/uL (3.5-6.1) 06/09/17 07:30 Hgb 12.4 g/dL (12.0-16.0) 06/09/17 07:30 Hct 37.5 % (36.0-48.0) 06/09/17 07:30 MCV 91.2 fl (80.0-105.0) 06/09/17 07:30 MCH 30.2 pg (25.0-35.0) 06/09/17 07:30 MCHC 33.1 g/dl (31.0-37.0) 06/09/17 07:30 RDW 13.1 % (11.5-14.5) 06/09/17 07:30 Plt Count 270 10^3/uL (120.0-450.0) 06/09/17 07:30 MPV 9.1 fl (7.0-11.0) 06/09/17 07:30 Gran % 75.6 % (50.0-68.0) H 06/07/17 17:35 Lymph % (Auto) 17.7 % (22.0-35.0) L 06/07/17 17:35 Pickens % (Auto) 5.5 % (1.0-6.0) 06/07/17 17:35 Eos % (Auto) 0.6 % (1.5-5.0) L 06/07/17 17:35 Baso % (Auto) 0.6 % (0.0-3.0) 06/07/17 17:35 Gran # 10.62 (1.4-6.5) H 06/07/17 17:35 Lymph # 2.5 (1.2-3.4) 06/07/17 17:35 Pickens # 0.8 (0.1-0.6) H 06/07/17 17:35 Eos # 0.1 (0.0-0.7) 06/07/17 17:35 Baso # 0.08 K/mm3 (0.0-2.0) 06/07/17 17:35 PT 10.3 Seconds (9.9-11.8) 06/07/17 17:35 INR 0.95 (0.93-1.08) 06/07/17 17:35 APTT 25.6 Seconds (23.7-30.8) 06/07/17 17:35 Sodium 144 mmol/L (132-148) 06/09/17 07:30 Potassium 4.1 mmol/L (3.6-5.0) 06/09/17 07:30 Chloride 110 mmol/L (95-110) 06/09/17 07:30 Carbon Dioxide 25 mmol/L (21-33) 06/09/17 07:30 Anion Gap 13 (10-20) 06/09/17 07:30 BUN 18 mg/dL (7-21) 06/09/17 07:30 Creatinine 0.8 mg/dL (0.5-1.4) 06/09/17 07:30 Est GFR ( Amer) > 60 06/09/17 07:30 Est GFR (Non-Af Amer) > 60 06/09/17 07:30 POC Glucose (mg/dL) 157 mg/dL (65-110) H 06/09/17 11:39 Random Glucose 143 mg/dL (70-110) H 06/09/17 07:30 Hemoglobin A1c 8.4 % (4.2-6.5) H 06/07/17 17:35 Calcium 9.4 mg/dL (8.4-10.5) 06/09/17 07:30 Total Bilirubin 0.8 mg/dL (0.2-1.3) 06/09/17 07:30 AST 25 U/L (14-36) 06/09/17 07:30 ALT 24 U/L (7-56) 06/09/17 07:30 Alkaline Phosphatase 66 U/L (38-126) 06/09/17 07:30 Troponin I < 0.01 ng/mL 06/07/17 17:35 NT-Pro-B Natriuret Pep 120 pg/mL (0-450) 06/07/17 17:35 Total Protein 8.0 g/dL (5.8-8.3) 06/09/17 07:30 Albumin 3.9 g/dL (3.0-4.8) 06/09/17 07:30 Globulin 4.1 gm/dL 06/09/17 07:30 Albumin/Globulin Ratio 1.0 (1.1-1.8) L 06/09/17 07:30 Triglycerides 125 mg/dL (35-160) 06/07/17 17:35 Cholesterol 188 mg/dL (130-200) 06/07/17 17:35 LDL Cholesterol Direct 119 mg/dL (0-129) 06/07/17 17:35 HDL Cholesterol 49 mg/dL (29-60) 06/07/17 17:35 Procalcitonin < 0.50 NG/ML (0.19-0.49) H 06/08/17 05:15 TSH 3rd Generation 2.61 mIU/mL (0.46-4.68) 06/09/17 07:30 Urine Color Yellow (YELLOW) 06/07/17 18:50 Urine Appearance Sl cloudy (CLEAR) 06/07/17 18:50 Urine pH 6.0 (4.7-8.0) 06/07/17 18:50 Ur Specific Mcfarland 1.020 (1.005-1.035) 06/07/17 18:50 Urine Protein 100 mg/dL (<30 mg/dL) H 06/07/17 18:50 Urine Glucose (UA) 250 mg/dL (NEGATIVE) H 06/07/17 18:50 Urine Ketones Negative mg/dL (NEGATIVE) 06/07/17 18:50 Urine Blood Negative (NEGATIVE) 06/07/17 18:50 Urine Nitrate Negative (NEGATIVE) 06/07/17 18:50 Urine Bilirubin Negative (NEGATIVE) 06/07/17 18:50 Urine Urobilinogen 0.2 E.U./dL (<1 E.U./dL) 06/07/17 18:50 Ur Leukocyte Esterase Negative Preet/uL (NEGATIVE) 06/07/17 18:50 Urine RBC Negative /hpf (0-2) 06/07/17 18:50 Urine WBC 5 - 10 /hpf (0-6) 06/07/17 18:50 Ur Epithelial Cells 4 - 5 /hpf (0-5) 06/07/17 18:50 Urine Bacteria Many (NEG) 06/07/17 18:50 Blood Type B POSITIVE 06/07/17 19:20 Blood Type Confirm B POSITIVE 06/07/17 20:15 Antibody Screen Negative 06/07/17 19:20 BBK History Checked No verified bt 06/07/17 19:20 - Hospital Course Hospital Course: This is a 72 yr. old female with a past medical history of sciatica who presented to ED s/p slurring of speech that has since resolved and acute exacerbation of chronic sciatic pain. EKD in ED showed A-fib. CT head w/o contrast in ED showed no hemorrhage or midline shifts. It did show age indeterminate ischemic changes and gave her a NIHSS 3 scale. On 06/08 She was seen by the Neurologist Dr. Hooks who advised for an MRI, echo, anticoagulation, and start at statin. MRI showed acute left pontine infarct (10 mm diameter irregular area of restricted diffusion on L side of mary c/w acute infarct). She was also seen by Cardiology that advised to continue Lovenox, lipitor, aspirin and to hold Lopressor when heart rate drops belwo 60 bpm. On 06/09 she was started Eliquis per Neurology consult. On 06/10 patient was discharged and advised to follow up with surgeon in regards to carotid stenosis present. Discharge Exam - Head Exam Head Exam: ATRAUMATIC, NORMAL INSPECTION, NORMOCEPHALIC - Eye Exam Eye Exam: EOMI, Normal appearance, PERRL Pupil Exam: NORMAL ACCOMODATION, PERRL - ENT Exam ENT Exam: Mucous Membranes Moist - Respiratory Exam Respiratory Exam: Clear to PA & Lateral, NORMAL BREATHING PATTERN. absent: Rales, Rhonchi - Cardiovascular Exam Cardiovascular Exam: REGULAR RHYTHM, RRR, +S1, +S2. absent: Gallop, Rubs - GI/Abdominal Exam GI & Abdominal Exam: Normal Bowel Sounds, Unremarkable. absent: Firm, Guarding - Back Exam Back exam: NORMAL INSPECTION. absent: paraspinal tenderness - Neurological Exam Neurological exam: Alert, CN II-XII Intact, Oriented x3 - Psychiatric Exam Psychiatric exam: Normal Affect, Normal Mood - Skin Skin Exam: Dry, Intact Discharge Plan - Discharge Medications Prescriptions: Aspirin [Aspirin Chewable] 81 mg PO DAILY #15 tab Apixaban [Eliquis] 5 mg PO BID #60 tablet GlipiZIDE [Glucotrol] 5 mg PO DAILY #15 tab Atorvastatin [Lipitor] 40 mg PO DIN #15 tab Metoprolol Tartrate [Lopressor] 25 mg PO BID #30 tab Lisinopril [Zestril] 10 mg PO DAILY #15 tab - Follow Up Plan Condition: STABLE Disposition: REHAB FACILITY/REHAB UNIT Instructions: Atrial Fibrillation (DC), Diabetes Mellitus Type 2 in Adults (DC) , Meal Planning with Diabetes Exchanges (DC), Stroke (DC) Additional Instructions: Patient discharge instructions - Follow up with neurologist 1 week after discharge - follow up with clerical clerk 1 week after discharge - follow up with vascular surgeon within 1 week after discharge Patient should return to E.D. for any new or worsening symptoms. Referrals: Jesus Alberto Enriquez MD [Primary Care Provider] - <Kym El - Last Filed: 06/09/17 17:56> Provider - Provider Date of Admission: 06/07/17 21:09 Attending physician: Kym El MD Primary care physician: Jesus Alberto Enriquez MD Hospital Course - Lab Results Lab Results: Most Recent Lab Values WBC 10.6 10^3/ul (4.5-11.0) 06/09/17 07:30 RBC 4.11 10^6/uL (3.5-6.1) 06/09/17 07:30 Hgb 12.4 g/dL (12.0-16.0) 06/09/17 07:30 Hct 37.5 % (36.0-48.0) 06/09/17 07:30 MCV 91.2 fl (80.0-105.0) 06/09/17 07:30 MCH 30.2 pg (25.0-35.0) 06/09/17 07:30 MCHC 33.1 g/dl (31.0-37.0) 06/09/17 07:30 RDW 13.1 % (11.5-14.5) 06/09/17 07:30 Plt Count 270 10^3/uL (120.0-450.0) 06/09/17 07:30 MPV 9.1 fl (7.0-11.0) 06/09/17 07:30 Gran % 75.6 % (50.0-68.0) H 06/07/17 17:35 Lymph % (Auto) 17.7 % (22.0-35.0) L 06/07/17 17:35 Pickens % (Auto) 5.5 % (1.0-6.0) 06/07/17 17:35 Eos % (Auto) 0.6 % (1.5-5.0) L 06/07/17 17:35 Baso % (Auto) 0.6 % (0.0-3.0) 06/07/17 17:35 Gran # 10.62 (1.4-6.5) H 06/07/17 17:35 Lymph # 2.5 (1.2-3.4) 06/07/17 17:35 Pickens # 0.8 (0.1-0.6) H 06/07/17 17:35 Eos # 0.1 (0.0-0.7) 06/07/17 17:35 Baso # 0.08 K/mm3 (0.0-2.0) 06/07/17 17:35 PT 10.3 Seconds (9.9-11.8) 06/07/17 17:35 INR 0.95 (0.93-1.08) 06/07/17 17:35 APTT 25.6 Seconds (23.7-30.8) 06/07/17 17:35 Sodium 144 mmol/L (132-148) 06/09/17 07:30 Potassium 4.1 mmol/L (3.6-5.0) 06/09/17 07:30 Chloride 110 mmol/L (95-110) 06/09/17 07:30 Carbon Dioxide 25 mmol/L (21-33) 06/09/17 07:30 Anion Gap 13 (10-20) 06/09/17 07:30 BUN 18 mg/dL (7-21) 06/09/17 07:30 Creatinine 0.8 mg/dL (0.5-1.4) 06/09/17 07:30 Est GFR ( Amer) > 60 06/09/17 07:30 Est GFR (Non-Af Amer) > 60 06/09/17 07:30 POC Glucose (mg/dL) 143 mg/dL (65-110) H 06/09/17 15:58 Random Glucose 143 mg/dL (70-110) H 06/09/17 07:30 Hemoglobin A1c 8.4 % (4.2-6.5) H 06/07/17 17:35 Calcium 9.4 mg/dL (8.4-10.5) 06/09/17 07:30 Total Bilirubin 0.8 mg/dL (0.2-1.3) 06/09/17 07:30 AST 25 U/L (14-36) 06/09/17 07:30 ALT 24 U/L (7-56) 06/09/17 07:30 Alkaline Phosphatase 66 U/L (38-126) 06/09/17 07:30 Troponin I < 0.01 ng/mL 06/07/17 17:35 NT-Pro-B Natriuret Pep 120 pg/mL (0-450) 06/07/17 17:35 Total Protein 8.0 g/dL (5.8-8.3) 06/09/17 07:30 Albumin 3.9 g/dL (3.0-4.8) 06/09/17 07:30 Globulin 4.1 gm/dL 06/09/17 07:30 Albumin/Globulin Ratio 1.0 (1.1-1.8) L 06/09/17 07:30 Triglycerides 125 mg/dL (35-160) 06/07/17 17:35 Cholesterol 188 mg/dL (130-200) 06/07/17 17:35 LDL Cholesterol Direct 119 mg/dL (0-129) 06/07/17 17:35 HDL Cholesterol 49 mg/dL (29-60) 06/07/17 17:35 Procalcitonin < 0.50 NG/ML (0.19-0.49) H 06/08/17 05:15 TSH 3rd Generation 2.61 mIU/mL (0.46-4.68) 06/09/17 07:30 Urine Color Yellow (YELLOW) 06/07/17 18:50 Urine Appearance Sl cloudy (CLEAR) 06/07/17 18:50 Urine pH 6.0 (4.7-8.0) 06/07/17 18:50 Ur Specific Mcfarland 1.020 (1.005-1.035) 06/07/17 18:50 Urine Protein 100 mg/dL (<30 mg/dL) H 06/07/17 18:50 Urine Glucose (UA) 250 mg/dL (NEGATIVE) H 06/07/17 18:50 Urine Ketones Negative mg/dL (NEGATIVE) 06/07/17 18:50 Urine Blood Negative (NEGATIVE) 06/07/17 18:50 Urine Nitrate Negative (NEGATIVE) 06/07/17 18:50 Urine Bilirubin Negative (NEGATIVE) 06/07/17 18:50 Urine Urobilinogen 0.2 E.U./dL (<1 E.U./dL) 06/07/17 18:50 Ur Leukocyte Esterase Negative Preet/uL (NEGATIVE) 06/07/17 18:50 Urine RBC Negative /hpf (0-2) 06/07/17 18:50 Urine WBC 5 - 10 /hpf (0-6) 06/07/17 18:50 Ur Epithelial Cells 4 - 5 /hpf (0-5) 06/07/17 18:50 Urine Bacteria Many (NEG) 06/07/17 18:50 Blood Type B POSITIVE 06/07/17 19:20 Blood Type Confirm B POSITIVE 06/07/17 20:15 Antibody Screen Negative 06/07/17 19:20 BBK History Checked No verified bt 06/07/17 19:20 Attending/Attestation - Attestation I have personally seen and examined this patient.: Yes I have fully participated in the care of the patient.: Yes I have reviewed all pertinent clinical information, including history, physical exam and plan: Yes Notes (Text): 06/09/17 17:55 Attending note; Patient seen and examined with resident. Patient's daughter by the bedside. Patient is a 72-year-old female admitted with right lower extremity numbness and slurred speech. CT head showed atrophy of small vessels and ischemic changes. MRI showed acute left pontine infarct. Neurology evaluation appreciated. Continue aspirin, Lipitor. New onset A. fib; started on subcutaneous Lovenox. Case discussed with cardiology in detail. Started eliquis in a.m. Echocardiogram ordered. Diabetes; newly diagnosed. Started on glipizide. PT evaluation appreciated. [facility] Case discussed with rehabilitation caseworker for discharge planning. Upon discharge the patient can follow up with PMD DR. Enriquez. diagnosis; Acute CVA hypertension Diabetes A. fib Left ICA atherosclerosis. 06/09/17 17:55
[2017-06-09 14:29] VITALS: PULSE 49
--- NOTE | 2017-06-09 14:36 | PN ---
SUBJECTIVE: The patient has some speech difficulty as well as balance difficulty. Plans have been changed to take the patient to rehab and process of looking for a rehab place is still going on. No reported arrhythmia. The patient denies any retrosternal chest pain. She denies any headache or dizziness. PHYSICAL EXAMINATION: VITAL SIGNS: Blood pressure 149/80, heart rate 66, temperature 98, respirations 14. HEENT: No pallor or icterus. NECK: No JVD. CHEST: Clear. HEART: S1 and S2 regular. EXTREMITIES: No edema. LABORATORY DATA: Today's CBC is within normal limits. Today's SMA-7 is within normal limits except for glucose of 143. TSH level is within normal limits 2.61. Chest CT scan, no acute findings. No evidence of pneumonia. Echocardiography study, borderline concentric LVH with normal ejection fraction, mild mitral insufficiency, and mild pulmonary hypertension. ASSESSMENT: 1. Paroxysmal atrial fibrillation. 2. Acute left pontine infarct. 3. Hypertension. 4. Uncontrolled diabetes mellitus. RECOMMENDATIONS: Continue Eliquis 10 mg twice a day which was started today. Continue aspirin 81 mg once a day, Lipitor at 40 mg once a day. Hold Lopressor for now because of sinus bradycardia. Continue Zestril at 10 mg once a day. Santi Taylor MD
--- NOTE | 2017-06-09 15:40 | PN ---
DATE: 06/09/2017 SUBJECTIVE: The patient is lying on the bed, in no acute distress. Denies having any headache or dizziness, said her speech is better; however, she has a difficulty with walking. PHYSICAL EXAMINATION: VITAL SIGNS: Her blood pressure is 158/82, heart rate is 60 per minute, breathing at the rate of 16 per minute and temperature is 97.8 degree Fahrenheit. HEENT: Normocephalic and atraumatic. NECK: Supple. There are no carotid bruits. LUNGS: Clear. CARDIOVASCULAR: S1 and S2, audible. No murmurs. ABDOMEN: Soft and nontender. Bowel sounds are present. NEUROLOGICAL: Mental status: The patient is awake, alert, oriented to time, place, and person. Speech is fluent. Naming and repetition is normal. Memory and cognition are intact. Cranial nerve examination: Pupils are 3 mm bilaterally reactive to light. Visual mathews are full. Extraocular movements are intact. There is no facial asymmetry. Palate is upgoing bilaterally and tongue is midline. Motor examination: Tone is normal. There is right-sided pronator drift noted. There is also a drift in the right lower extremity noted. Power on the left side is 5/5. Plantars downgoing bilaterally. LABORATORY DATA: Labs reviewed. Carotid ultrasound shows 60% to 79% proximal left ICA stenosis, 40% to 59% proximal right ICA stenosis. IMPRESSION: 1. Cerebrovascular accident involving the mary, causing weakness in the right side as well as mild dysarthria which is noted mostly by the patient's family. 2. New onset of atrial fibrillation. 3. Left internal carotid artery stenosis. RECOMMENDATIONS: 1. The patient was started on Eliquis to which I agree with. 2. The patient also to be continued on statin. 3. The patient to have physical therapy for gait and balance as well as to strengthen the right side. 4. The patient had an echocardiogram done, which shows no thrombus. 5. The patient is neurologically stable for discharge to rehab. Thank you for the opportunity to participate in the care of this patient. Elysia Hooks MD
== END 2017-06-09 19:46 | DRG 64 ==
LOC: ED 16:50 → ERH 21:09 → 2RSO 22:55
PROVIDERS: ADMIT Internal Medicine; ATTEND Internal Medicine
DX: I63.9 Cerebral infarction, unspecified (principal); J18.9 Pneumonia, unspecified organism; E11.65 Type 2 diabetes mellitus with hyperglycemia; I48.0 Paroxysmal atrial fibrillation; I65.22 Occlusion and stenosis of left carotid artery; I27.2 Other secondary pulmonary hypertension; I34.0 Nonrheumatic mitral (valve) insufficiency; I10 Essential (primary) hypertension; R47.81 Slurred speech; R29.810 Facial weakness; R47.1 Dysarthria and anarthria; R29.703 NIHSS score 3; Z79.82 Long term (current) use of aspirin; Z79.84 Long term (current) use of oral hypoglycemic drugs